=== PATIENT | male | born 1945 | race Asian ===

== ENCOUNTER 2022-01-23 23:23 | Emergency (ER) | payer OTHER ==
[~2022-01-23] VITALS: Ht 180.3 cm; Wt 82.6 kg
[2022-01-24 00:11] LABS: POTASSIUM 2.7 mmol/L (3.6-5.2)
[2022-01-24 01:54] LABS: PLATELET COUNT 21 K/uL (142-355)
[2022-01-24 03:34] VITALS: BP 89/47; TEMP 97.8
== END 2022-01-24 03:34 | disposition home or self-care (01) ==
LOC: ED 23:23
PROVIDERS: Emergency Medicine Emergency Medical Services
DX: E11.649 Type 2 diabetes mellitus with hypoglycemia without coma (principal); Z79.4 Long term (current) use of insulin
CPT/HCPCS: 36415; 80053; 82948; 83735; 84484; 85027; 93005; 96365; 96366; 96368; 99284